=== PATIENT | male | born 1960 | race American Indian/Alaskan Native ===

== ENCOUNTER 2020-07-20 08:28 | Emergency (ER) | payer OTHER, SELFPAY ==
--- NOTE | 2020-07-20 | ECG_ITS ---
Test Reason : CHEST PAIN Blood Pressure : / mmHG Vent. Rate : 071 BPM Atrial Rate : 071 BPM P-R Int : 142 ms QRS Dur : 082 ms QT Int : 374 ms P-R-T Axes : 067 -02 063 degrees QTc Int : 406 ms Normal sinus rhythm with sinus arrhythmia Normal ECG No previous ECGs available Referred By: Generic ED Physician Electronically Signed By:NARESH SANCHEZ MD
--- NOTE | ~2020-07-20 | XR_ITS ---
EXAMINATION: XR CHEST CLINICAL INFORMATION: Chest pain COMPARISON: None TECHNIQUE: Portable upright AP x2 views of the chest was obtained. FINDINGS: The lungs are clear. There is no pneumothorax, pleural reaction, infiltrate, or groundglass opacity. No subcutaneous emphysema. The costophrenic sulci are clear. The heart is normal in size. The hilar and mediastinal contours and visualized bony structures are unremarkable. No free air beneath the diaphragms. There may be a small sliding hiatal hernia. XR/XR chest 1V IMPRESSION: Unremarkable examination.
[2020-07-20 09:19] VITALS: BP 127/72; PULSE 65; RESP 12; TEMP 36.7; O2SAT 99; BMI 28.5
--- NOTE | 2020-07-20 09:27 | ED.CHESTPAIN ---
HPI - Chest Pain General Chief Complaint: Chest Pain Stated Complaint: CHEST PAIN Time Seen by Provider: 07/20/20 09:26 Source: patient Mode of arrival: ambulatory Limitations: no limitations History of Present Illness HPI narrative: 60 yo male no sig PMH here with chest pain 3 weeks ago that went away, now states this AM at 7am he had similar chest pain that is cramping, hurts in L shoulder felt mild sob started to panic, no prior episodes of this in past worse if he moves his arm or stretches his chest MD complaint: chest pain Onset (ago): week(s) (3 weeks then this AM at 7am) Timing of current episode: episodic Prior episodes: No Onset: during rest Pain location: substernal Pain radiation: left arm Severity: moderate Quality: other (cramping) Relieving factors: nothing Exacerbating factors: movement Associated symptoms: dyspnea Treatment prior to arrival: none Related Data Allergies Allergy/AdvReac Type Severity Reaction Status Date / Time No Known Allergies Allergy Unverified 02/12/20 19:47 Review of Systems Review of Systems: Constitutional : No Weight loss, No Fever, No Chills ENT/Mouth : No sore throat, No Rhinorrhea Eyes: No Eye Pain, No Swelling Cardiovascular : pos Chest Pain, pos SOB, no Dyspnea on Exertion, No Orthopnea, No Edema, No Palpitations Respiratory : No Cough, No Sputum Gastrointestinal : no Nausea, No Vomiting, No Diarrhea, No abdominal Pain, No Hematochezia, No Melena Genitourinary : No Dysuria, No Urinary Frequency Musculoskeletal : No joint pain, No Myalgias, No Joint Swelling Skin : No Skin Lesions, No rash Neuro : No Weakness, No Numbness, No Dizziness, No Headache Psych : No Anxiety/Panic, No Depression Heme/Lymph: No Bruising, No Lymphadenopathy Endocrine : No Polyuria, No Polydipsia All other systems reviewed and are negative [facility] Past Medical History Attestation statement: The following information was validated with the patient. Medical History TBI (traumatic brain injury) Social History Social History Smoking Status: Current every day smoker Smoked in Last 30 Days: Yes Use of substances other than those prescribed or required for medical reasons: No Advance Directives: No Advance Directives Information Provided: No Physical Exam Vital Signs: Vital Signs: Last Vital Signs Temp 98.4 F 07/20/20 14:53 Pulse 80 07/20/20 14:53 Resp 18 07/20/20 14:53 BP 123/83 07/20/20 14:53 Pulse Ox 99 07/20/20 14:53 Body Mass Index 28.5 Appearance: Alert. Oriented X3. No acute distress. Eyes: Pupils equal, round and reactive to light. ENT: Pharynx normal. Neck: Normal inspection. Neck supple. CVS: Normal heart rate and rhythm. Pulses normal. Respiratory: No respiratory distress. Breath sounds normal. Abdomen: Soft and nontender. Skin: Skin warm and dry. Normal skin color. Normal skin turgor. Extremities: No lower extremity edema. No calf ttp Neuro: Oriented X 3. No motor deficit. No sensory deficit. Course Course Course Narrative: ddimer negative, troponin x 2 negative, EKG nonischemic stable for DC MDM - Chest Pain MDM Narrative Medical decision making narrative: 60 yo male with hx of ETOH abuse cut down 4 days ago c/o chest pain 3 weeks ago that he let resolve on its own, this AM at rest 7am - c/o chest pain with some shoulder pain and dyspnea worse with movements, no prior cardiac issues - will need labs, troponin x 2, ddimer, CXR, covid swab, PO aspirin and ativan 0.5mg for anxiety, dispo per results and findings. Lab Data Result diagrams: 07/20/20 09:48 07/20/20 11:57 Labs: Lab Results 07/20/20 07/20/20 07/20/20 Range/Units 09:48 09:48 09:48 WBC 8.1 (4.8-10.8) X10*3/uL RBC 5.00 (4.60-5.80) X10*6/uL Hgb 15.8 (14.0-18.0) g/dl Hct 47.0 (42-52) % MCV 94.0 (80-98) fL MCH 31.6 (27.0-33.0) pg MCHC 33.6 (31.0-36.0) g/dl RDW 12.6 (11.0-16.0) % Plt Count 306 (160-400) X10*3/uL MPV 8.5 L (9.4-12.4) fL Immature Gran % (Auto) 0.2 (0.0-0.4) % Neut % (Auto) 64.7 (45-73) % Lymph % (Auto) 25.6 (20-40) % Taliaferro % (Auto) 7.4 (2-11) % Eos % (Auto) 1.9 (0-4) % Baso % (Auto) 0.2 (0-2) % Lymph # (Auto) 2.1 (1.2-4.9) X10*3/uL [place]ferro # (Auto) 0.6 (0.1-1.2) X10*3/uL Eos # (Auto) 0.2 (0.0-0.4) X10*3/uL Baso # (Auto) 0.0 (0.0-0.2) X10*3/uL Abs Immat Gran (auto) 0.02 (0.00-0.03) X10*3/uL Absolute Neuts (auto) 5.2 (2.0-8.3) X10*3/uL Absolute Nucleated RBC 0.000 (0.0-0.012) X10*3/uL Nucleated RBC % (auto) 0.0 (0.0-0.2) /100WBC D-Dimer NG/ML Sodium (135-145) mmol/L Potassium (3.3-5.1) mmol/L Chloride (96-108) mmol/L Carbon Dioxide (22-29) mmol/L Anion Gap (12-20) BUN (9-16) mg/dL Creatinine (0.5-1.4) mg/dL Estim Creat Clear Calc Estimated GFR Random Glucose (60-115) mg/dL Calcium (8.4-10.2) mg/dL Magnesium (1.6-2.6) mg/dL Total Bilirubin (0.0-1.0) mg/dL Direct Bilirubin (0.0-0.5) mg/dL AST (5-37) U/L ALT (0-40) U/L Alkaline Phosphatase (39-117) U/L Troponin I High Sens < 3.5 (<3.5-35.0) ng/L Total Protein (6.5-8.0) g/dL Albumin (3.5-5.0) g/dL Lipase (8-78) U/L COVID-19 (AMY) Negative (Negative) COVID-19 Clin Com See Note 07/20/20 07/20/20 07/20/20 Range/Units 11:57 11:57 14:14 WBC (4.8-10.8) X10*3/uL RBC (4.60-5.80) X10*6/uL Hgb (14.0-18.0) g/dl Hct (42-52) % MCV (80-98) fL MCH (27.0-33.0) pg MCHC (31.0-36.0) g/dl RDW (11.0-16.0) % Plt Count (160-400) X10*3/uL MPV (9.4-12.4) fL Immature Gran % (Auto) (0.0-0.4) % Neut % (Auto) (45-73) % Lymph % (Auto) (20-40) % Taliaferro % (Auto) (2-11) % Eos % (Auto) (0-4) % Baso % (Auto) (0-2) % Lymph # (Auto) (1.2-4.9) X10*3/uL [place]ferro # (Auto) (0.1-1.2) X10*3/uL Eos # (Auto) (0.0-0.4) X10*3/uL Baso # (Auto) (0.0-0.2) X10*3/uL Abs Immat Gran (auto) (0.00-0.03) X10*3/uL Absolute Neuts (auto) (2.0-8.3) X10*3/uL Absolute Nucleated RBC (0.0-0.012) X10*3/uL Nucleated RBC % (auto) (0.0-0.2) /100WBC D-Dimer < 200 NG/ML Sodium 141 (135-145) mmol/L Potassium 4.4 (3.3-5.1) mmol/L Chloride 107 (96-108) mmol/L Carbon Dioxide 27 (22-29) mmol/L Anion Gap 11 L (12-20) BUN 6 L (9-16) mg/dL Creatinine 1.03 (0.5-1.4) mg/dL Estim Creat Clear Calc 76.4 Estimated GFR > 60 Random Glucose 87 (60-115) mg/dL Calcium 8.8 (8.4-10.2) mg/dL Magnesium 2.0 (1.6-2.6) mg/dL Total Bilirubin 0.5 (0.0-1.0) mg/dL Direct Bilirubin 0.2 (0.0-0.5) mg/dL AST 30 (5-37) U/L ALT 24 (0-40) U/L Alkaline Phosphatase 52 (39-117) U/L Troponin I High Sens < 3.5 (<3.5-35.0) ng/L Total Protein 6.8 (6.5-8.0) g/dL Albumin 4.1 (3.5-5.0) g/dL Lipase 22 (8-78) U/L COVID-19 (AMY) (Negative) COVID-19 [employer] Com ECG Data ECG #1: Attestation: I personally reviewed and interpreted this ECG as follows: ECG interpretation date: 07/20/20 ECG interpretation time: 09:27 Interpretation: Rate: 71 Rhythm: NSR Tell: left Normal P waves. Normal ANNA. Normal QRS complex. ST T wave : normal no BRIE qTC: normal prior studies: no acute ischemia The study has been interpreted contemporaneously by me. . Discharge Plan Discharge Clinical Impression: Chest pain Qualifiers: Chest pain type: unspecified Qualified Code(s): R07.9 - Chest pain, unspecified Patient Disposition: Home, Self-Care Instructions: Chest Pain (ED) Additional Instructions: return to ED for any worsening symptoms or concerns YOUR LIVER FUNCTION, HEART MARKERS X 2, DDIMER NEGATIVE, CXR AND COVID NEGATIVE Referrals: Lianet Torres MD [Primary Care Provider] - 2 days (CALL FOR OUTPATIENT STRESS TEST) Stand Alone Forms: Work/School Release
[2020-07-20] MEDS: Aspirin 81 MG TAB.CHEW PO (09:40)
[2020-07-20] MEDS: LORazepam 0.5 MG TABLET PO (09:40)
[2020-07-20 09:54] LABS: MANUAL DIFF FLAG NO
[2020-07-20 09:57] LABS: Basophils Percent Auto 0.2 % (0-2); Eosinophils Absolute Auto 0.2 X10*3/uL (0.0-0.4); Eosinophils Percent Auto 1.9 % (0-4); Hemoglobin 15.8 g/dl (14.0-18.0); Imm Gran Abs Auto 0.02 X10*3/uL (0.00-0.03); Imm Gran Pct Auto 0.2 % (0.0-0.4); Lymphocytes Absolute Auto 2.1 X10*3/uL (1.2-4.9); Lymphocytes Percent Auto 25.6 % (20-40); Mean Corpuscular HGB Conc 33.6 g/dl (31.0-36.0); Mean Corpuscular Hemoglobin 31.6 pg (27.0-33.0); Mean Platelet Volume 8.5 fL (9.4-12.4); Monocytes Absolute Auto 0.6 X10*3/uL (0.1-1.2); Monocytes Percent Auto 7.4 % (2-11); Neutrophils Absolute Auto 5.2 X10*3/uL (2.0-8.3); Neutrophils Percent Auto 64.7 % (45-73); Platelet Count 306 X10*3/uL (160-400); Red Cell Distribution Width 12.6 % (11.0-16.0); White Blood Count 8.1 X10*3/uL (4.8-10.8)
[2020-07-20 10:27] LABS: Troponin-I High Sensitivity < 3.5 ng/L (<3.5-35.0)
[2020-07-20 10:30] LABS: COVID-19 Test Negative (Negative)
[2020-07-20 12:21] LABS: D Dimer < 200 NG/ML
[2020-07-20 12:45] LABS: Alanine Aminotransferase 24 U/L (0-40); Albumin Level 4.1 g/dL (3.5-5.0); Alkaline Phosphatase 52 U/L (39-117); Anion Gap 11 (12-20); Aspartate Amino Transferase 30 U/L (5-37); Bilirubin Direct 0.2 mg/dL (0.0-0.5); Bilirubin Total 0.5 mg/dL (0.0-1.0); Blood Urea Nitrogen 6 mg/dL (9-16); Calcium 8.8 mg/dL (8.4-10.2); Carbon Dioxide 27 mmol/L (22-29); Chloride 107 mmol/L (96-108); Creatinine Clr Calc Pharmacy 76.4; Estimated Glomerular Filt Rate > 60; Glucose Random 87 mg/dL (60-115); Lipase 22 U/L (8-78); Potassium 4.4 mmol/L (3.3-5.1); Sodium 141 mmol/L (135-145); Total Protein 6.8 g/dL (6.5-8.0)
[2020-07-20 14:16] VITALS: BP 131/91; PULSE 78; RESP 12; O2SAT 97
[2020-07-20 14:53] VITALS: BP 123/83; PULSE 80; RESP 18; TEMP 36.9; O2SAT 99
[2020-07-20 14:53] LABS: Troponin-I High Sensitivity < 3.5 ng/L (<3.5-35.0)
== END 2020-07-20 15:14 | disposition home or self-care (01) ==
PROVIDERS: Emergency Provider Emergency Medicine; PCP Internal Medicine
DX: R07.9 Chest pain, unspecified (principal); Z20.822 Contact with and (suspected) exposure to COVID-19; Z87.820 Personal history of traumatic brain injury; F17.200 Nicotine dependence, unspecified, uncomplicated
CPT/HCPCS: 36415; 71045; 80048; 80076; 83690; 83735; 84484; 85025; 85379; 87635; 93005; 99283; 99284

== ENCOUNTER 2022-11-21 08:42 | Emergency (ER) | payer OTHER, SELFPAY ==
--- NOTE | ~2022-11-21 | CT_ITS ---
EXAMINATION: CT PELVIS WITH CONTRAST CLINICAL INFORMATION: Perianal abscess. COMPARISON: None available. TECHNIQUE: Helical scanning was performed with submillimeter collimation through the pelvis with the use of oral contrast and during bolus intravenous injection of 100 mL of Omnipaque 350 intravenous contrast. Sagittal and coronal multiplanar 2-D reconstructions were obtained. This CT examination was performed using dose optimization techniques as appropriate, variously including the following: *Automated exposure control *Adjustment of mA and/or kV according to patient size (this includes techniques or standardized protocols for targeted exams where dose is matched to indication/reason for exam; i.e. extremities or head) *Use of iterative reconstruction technique DLP: 279 mGy-cm FINDINGS: SOFT TISSUES: There is a perianal abscess collection with thickened wall and complex fluid centrally measuring approximately 3.5 x 2.1 x 2.1 cm (image 98, series 5; image 54, series 2). No significant surrounding abnormality. PELVIS: Mild prostatomegaly. Mild mural thickening in the urinary bladder without focal abnormality. No other significant intrapelvic abnormality. OSSEOUS STRUCTURES: Unremarkable. CT/CT pelvis w IV con IMPRESSION: 1. Perianal abscess as detailed above. 2. Mild prostamegaly. Mild mural thickening in the urinary bladder does not demonstrate acute features and could represent chronic changes from urinary retention.
[2022-11-21 08:51] VITALS: BP 143/87; PULSE 76; RESP 19; TEMP 36.6; O2SAT 98; BMI 27.4
--- NOTE | 2022-11-21 09:12 | ED.GENADULT ---
HPI - General Adult General Chief complaint: General Medical Stated complaint: Hernia Swollen Perineum Time Seen by Provider: 11/21/22 09:11 Source: patient Mode of arrival: ambulatory Limitations: no limitations History of Present Illness HPI narrative: 62 year old male with history of hernias requiring surgery presenting today with a complaint of swollen perineum x2-3 days. Patient states that he's never had these symptoms before. Reports recent episodes of diarrhea where he's had to strain and notes new hemorrhoid and perianal/ perineum pain/ swelling. No fever, chills, N/V, urinary symptoms. Related Data Previous Rx's Medication Instructions Recorded oxycodone-acetaminophen 5 mg-325 1 tab PO QID PRN pain #7 tabs 11/21/22 mg tablet (Percocet) Allergies Allergy/AdvReac Type Severity Reaction Status Date / Time No Known Allergies Allergy Verified 11/21/22 08:51 Review of Systems Review of Systems: Yes all other systems are reviewed and are negative [facility] Past Medical History Source: old records reviewed Medical History TBI (traumatic brain injury) Social History Social History Alcohol intake: current Alcohol intake frequency: holidays/special occasions only Alcohol type: hard liquor Smoked in Last 30 Days: Yes Use of substances other than those prescribed or required for medical reasons: Yes Substance Use Type: Marijuana Advance Directives: No Physical Exam ED Vital Signs: Vital Signs - 24 hr 11/21/22 08:51 11/21/22 09:40 11/21/22 10:06 Temperature 97.8 F 97.9 F 98.0 F Pulse Rate 76 92 80 Respiratory Rate 19 18 16 Blood Pressure 143/87 H 139/88 135/85 Pulse Oximetry 98 98 Oxygen Delivery Method Room Air Room Air 11/21/22 12:00 11/21/22 12:53 11/21/22 13:18 Temperature 98.3 F Pulse Rate 85 78 66 Respiratory Rate 16 16 16 Blood Pressure 116/83 138/81 135/83 Pulse Oximetry 99 95 Oxygen Delivery Method Room Air Room Air BMI result Body Mass Index 27.4 Const General: healthy appearing, alert and awake Nutritional Appearance: average body habitus Orientation/consciousness: oriented to person and patient oriented x3 Limitations: no limitations [facility] Head: Yes normal to inspection Ears: external ears normal General nose exam: Normal external nose present Mouth: Normal oral and palatal mucosa present and oropharynx normal Throat: Yes posterior oropharynx normal Eyes General: appearance normal, both eyes and all related structures Neck Neck: Yes normal visual inspection Chest Chest palpation & inspection: normal inspection of the chest Resp Auscultation: clear to auscultation bilaterally Cardio Jugular venous distension: no JVD Rate: regular rate Rhythm: regular rhythm Heart sounds: S1 normal heart sound present and S2 normal heart sound present GI Inspection: Yes normal to inspection Palpation (GI): Soft to palpation, nontender and No hepatosplenomegaly present Auscultation: normal bowel sounds Other: + midline perineal 2cm swelling, tenderness, firm, slight erythema General: Yes no CVA tenderness Back/Spine/Pelvis Back: no CVA tenderness Skin General skin exam: no rashes or lesions noted Neuro General: oriented to person and patient oriented x3 Cranial nerves: Yes CN's II-XII intact bilaterally Motor exam (neuro): 5/5 motor strength present throughout Extrem General: Yes normal to inspection Psych Appearance: grossly normal Course Reevaluation(s) Reevaluation #1: CT consistent with midline perianal abscess, no fever or cellulitis, wound I&D with packing placed will dc home Time: 14:45 Medications Administered Discontinued Medications Generic Name Dose Route Start Last Admin Trade Name Emilq PRN Reason Stop Dose Admin Iohexol 100 ml 11/21/22 11:12 11/21/22 11:13 Iohexol 350 Mg/Ml 100 Ml Infus..Btl IV 11/21/22 11:13 85 ml ONCE ONE Administration Morphine Sulfate 4 mg 11/21/22 09:19 11/21/22 09:36 Morphine Sulfate 4 Mg/Ml Cartridge IVPUSH 11/21/22 09:20 4 mg ONCE ONE Administration Protocol Morphine Sulfate 4 mg 11/21/22 12:03 11/21/22 12:23 Morphine Sulfate 4 Mg/Ml Cartridge IVPUSH 11/21/22 12:04 4 mg ONCE ONE Administration Protocol Ondansetron HCl 4 mg 11/21/22 09:19 11/21/22 09:36 Ondansetron Hcl 4 Mg/2 Ml Vial IVPUSH 11/21/22 09:20 4 mg ONCE ONE Administration Procedures Procedure Narrative Procedure Narrative: Patient prepped and draped in sterile fashion. !% epi with lidocaine used for anesthesia. 11 blade used, pus removed, packing placed. Patient tolerated procedure well Medical Decision Making Differential Diagnosis Differential Diagnoses: The differential diagnosis associated with the presentation includes (abscess, thrombosed hemorrhoid, hemorrhoid, perirectal fistula) Admission/Observation Consideration of admission/observation: Escalation of care including admission/observation considered (admission was considered if abscess went deep or there was a fistula and patient need surgery) Consult Healthcare Provider Management of the patient was discussed with: [employer] W[employer]y Administrator (Dr. Rodríguez general surgery) Lab Data MDM Lab Attestation statement: I reviewed the patient's lab results. (slight elevation of WBC) 11/21/22 09:30 11/21/22 09:30 Labs: Lab Results 11/21/22 11/21/22 Range/Units 09:30 09:30 WBC 12.5 H (4.8-10.8) X10*3/uL RBC 4.75 (4.60-5.80) X10*6/uL Hgb 14.8 (14.0-18.0) g/dl Hct 44.1 (42.0-52.0) % MCV 92.8 (80.0-98.0) fL MCH 31.2 (27.0-33.0) pg MCHC 33.6 (31.0-36.0) g/dl RDW 12.8 (11.0-16.0) % Plt Count 288 (160-400) X10*3/uL MPV 8.1 L (9.4-12.4) fL Immature Gran % (Auto) 0.2 (0.0-0.4) % Neut % (Auto) 71.0 (45-73) % Lymph % (Auto) 20.6 (20-40) % Dunn % (Auto) 7.4 (2-11) % Eos % (Auto) 0.7 (0-4) % Baso % (Auto) 0.1 (0-2) % Lymph # (Auto) 2.6 (1.2-4.9) X10*3/uL Dunn # (Auto) 0.9 (0.1-1.2) X10*3/uL Eos # (Auto) 0.1 (0.0-0.4) X10*3/uL Baso # (Auto) 0.0 (0.0-0.2) X10*3/uL Abs Immat Gran (auto) 0.03 (0.00-0.03) X10*3/uL Absolute Neuts (auto) 8.8 H (2.0-8.3) x10*3/uL Absolute Nucleated RBC 0.000 (0.0-0.012) X10*3/uL Nucleated RBC % (auto) 0.0 (0.0-0.2) /100WBC Sodium 140 (135-145) mmol/L Potassium 4.1 (3.3-5.1) mmol/L Chloride 105 (96-108) mmol/L Carbon Dioxide 26 (22-29) mmol/L Anion Gap 13 (12-20) BUN 9 (9-16) mg/dL Creatinine 1.02 (0.5-1.4) mg/dL Estim Creat Clear Calc 70.7 Estimated GFR > 60 Random Glucose 101 (60-115) mg/dL Calcium 9.5 D (8.4-10.2) mg/dL Independent Interpretation I performed an independent interpretation of an: CT Scan (abd: fluid collection in perineum) Radiology Impression Discussion of test interpretation with radiology: I have reviewed the radiologist's reading. Independent Historian Clinical information obtained from an independent historian. History obtained from or confirmed by: Spouse Discharge Plan Discharge Clinical Impression: Abscess, perianal Patient Disposition: Home, Self-Care Instructions: Abscess (ED) Additional Instructions: remove packing in 48 hours Prescriptions: New oxycodone-acetaminophen [Percocet] 5-325 mg tablet 1 tab PO QID PRN (Reason: pain) Qty: 7 0RF Rx Instructions: Partial Fill upon patient request. Referrals: Physician,Unknown J [Primary Care Provider] - 5 days
[2022-11-21 09:34] LABS: MANUAL DIFF FLAG NO
[2022-11-21] MEDS: Morphine Sulfate 4 MG/ML CARTRIDGE IVPUSH ×2 (09:36→12:23)
[2022-11-21] MEDS: ondansetron HCL 4 MG/2 ML VIAL IVPUSH (09:36)
--- NOTE | 2022-11-21 09:36 | PC.NURSE ---
patient a&ox3 patient c/o 03/06 pernneal pain, iv inserted, labs drawn, pt medicated per order for pain. pt awaiting radiology. vss, will continue to monitor
[2022-11-21 09:37] LABS: Basophils Percent Auto 0.1 % (0-2); Eosinophils Absolute Auto 0.1 X10*3/uL (0.0-0.4); Eosinophils Percent Auto 0.7 % (0-4); Hematocrit 44.1 % (42.0-52.0); Hemoglobin 14.8 g/dl (14.0-18.0); Imm Gran Abs Auto 0.03 X10*3/uL (0.00-0.03); Imm Gran Pct Auto 0.2 % (0.0-0.4); Lymphocytes Absolute Auto 2.6 X10*3/uL (1.2-4.9); Lymphocytes Percent Auto 20.6 % (20-40); Mean Corpuscular HGB Conc 33.6 g/dl (31.0-36.0); Mean Corpuscular Hemoglobin 31.2 pg (27.0-33.0); Mean Corpuscular Volume 92.8 fL (80.0-98.0); Mean Platelet Volume 8.1 fL (9.4-12.4); Monocytes Absolute Auto 0.9 X10*3/uL (0.1-1.2); Monocytes Percent Auto 7.4 % (2-11); Neutrophils Absolute Auto 8.8 x10*3/uL (2.0-8.3); Platelet Count 288 X10*3/uL (160-400); Red Blood Count 4.75 X10*6/uL (4.60-5.80); Red Cell Distribution Width 12.8 % (11.0-16.0); White Blood Count 12.5 X10*3/uL (4.8-10.8)
[2022-11-21 09:40] VITALS: BP 139/88; PULSE 92; RESP 18; TEMP 36.6; O2SAT 98
[2022-11-21 09:52] LABS: Anion Gap 13 (12-20); Blood Urea Nitrogen 9 mg/dL (9-16); Calcium 9.5 mg/dL (8.4-10.2); Carbon Dioxide 26 mmol/L (22-29); Chloride 105 mmol/L (96-108); Creatinine Clr Calc Pharmacy 70.7; Estimated Glomerular Filt Rate > 60; Glucose Random 101 mg/dL (60-115); Potassium 4.1 mmol/L (3.3-5.1); Sodium 140 mmol/L (135-145)
[2022-11-21 10:06] VITALS: BP 135/85; PULSE 80; RESP 16; TEMP 36.7
--- NOTE | 2022-11-21 10:21 | PC.NURSE ---
pt's pain reassessed at 10:06 stating slight decrease to a 7/10 - states that the pain worsens when he coughs or tightens his abdominal muscles - I instructed him to try to refrain from doing so, call tineo within reach, will continue to monitor.
[2022-11-21] MEDS: iohexoL 350 MG/ML 100 ML INFUS..BTL IV (11:13)
[2022-11-21 12:00] VITALS: BP 116/83; PULSE 85; RESP 16; O2SAT 99
--- NOTE | 2022-11-21 12:19 | PC.NURSE ---
pt states increase in pain at a 10/10, requesting pain medication, provider notified.
--- NOTE | 2022-11-21 12:35 | PC.NURSE ---
pt medicated with morphine per order, pt requesting hot pack as well as topical ointment or estela area- will notify provider, call tineo within reach, will continue to monitor.
[2022-11-21 12:53] VITALS: BP 138/81; PULSE 78; RESP 16
[2022-11-21 13:18] VITALS: BP 135/83; PULSE 66; RESP 16; TEMP 36.8; O2SAT 95
--- NOTE | 2022-11-21 13:19 | PC.NURSE ---
pt alert and oriented, pain level reassessed stating very minimal pain relief upon medication administration, states that it feels like he has little needles being pressed into the perineum area, vss, pt restinhg comfortably in no apparent distress, call tineo within reach, will continue to monitor.
[2022-11-21] MEDS: oxyCODONE HCl Immed Release 5 MG TABLET 10 MG PO (15:33)
[2022-11-21] MEDS: Lidocaine HCl 1%/Epi 1:100,000 10 ML VIAL SUBCUT (15:34)
== END 2022-11-21 15:48 | disposition home or self-care (01) ==
PROVIDERS: Emergency Provider Emergency Medicine
DX: K61.0 Anal abscess (principal); R10.2 Pelvic and perineal pain; Z79.899 Other long term (current) drug therapy
CPT/HCPCS: 36415; 72193; 80048; 85025; 96374; 96375; 96376; 99284; J2270; J2405; Q9967

== ENCOUNTER 2024-09-14 09:14 | Emergency (ER) | payer MEDICARE, OTHER, SELFPAY ==
[2024-09-14 09:26] VITALS: BP 133/89; BP 147/91; PULSE 100; PULSE 93; RESP 16; TEMP 36.6; O2SAT 95; O2SAT 97; BMI 23.6
[2024-09-14 09:33] VITALS: RESP 18
--- NOTE | 2024-09-14 09:35 | PC.NURSE ---
Tobias comes in from home today due to behavioral concerns per EMS. EMS reports that pts called 911 because he came home drunk and is off his bipolar medications. Pt denies having bipolar, he reports that he has a TBI. Patient is calm and cooperative, offering no complaints, denies SI/HI/AH/VH. Continue plan of care for medical clearance
--- NOTE | 2024-09-14 09:37 | ED_ITS ---
HPI - Psych General Chief Complaint: ETOH/Substance Use Stated Complaint: CRISIS EVAL,?ETOH USE,BIPOLAR OFF MED,COOP PER EMS Time Seen by Provider: 09/14/24 09:22 Source: patient, EMS, RN notes reviewed and old records reviewed Mode of arrival: EMS Limitations: no limitations History of Present Illness ED Provider: Hunter HPI Narrative: Patient is a 64-year-old male with history of TBI presenting to emergency department via EMS after called 911 for behavioral concerns. Patient admits he does not take his bipolar medications, also admits to drinking alcohol and using marijuana. He reports that any time that he and his get into an argument she calls 911. He denies making any suicidal or homicidal statements, denies suicidal or homicidal ideation, denies depression or anxiety, denies auditory or visual hallucinations. Reports he is here because he was told he needed to come for evaluation. Denies any physical complaints. Related Data Home Medications ?Medication ?Instructions ?Recorded ?Confirmed No Known Home Meds 09/14/24 09/14/24 Allergies Allergy/AdvReac Type Severity Reaction Status Date / Time No Known Allergies Allergy Verified 09/14/24 09:35 Review of Systems 2 Review of Systems: As per HPI Yes all other systems are reviewed and are negative Constitutional: Constitutional: Reports as per HPI PMFSH Past Medical History Medical History TBI (traumatic brain injury) Social History Social History Unable to assess alcohol history related to: Refusing to respond Alcohol intake: current Alcohol intake frequency: holidays/special occasions only Alcohol type: hard liquor Smoked in Last 30 Days: Yes Use of substances other than those prescribed or required for medical reasons: No Substance Use Type: Marijuana Advance Directives: No Advance Directives Information Provided: Yes Physical Exam 2 Vital Signs: Vital Signs: Last Vital Signs Temp 98 F 09/14/24 09:26 Pulse 93 09/14/24 09:26 Resp 18 09/14/24 09:33 BP 133/89 09/14/24 09:26 Pulse Ox 95 09/14/24 09:26 O2 Del Method Room Air 09/14/24 09:26 BMI result Body Mass Index 23.6 Vital signs have been reviewed and appear to be correct. Blood pressure normal. Heart rate normal. Respiratory rate normal. Temperature normal. Oxygen saturation normal. Const: General: cooperative, healthy appearing and no acute distress O rientation/consciousness: oriented to person, oriented to place, oriented to time and patient oriented x3 Limitations: no limitations HEENT: Head: Yes normocephalic and Yes atraumatic Ears: external ears normal General nose exam: Normal external nose present Face and sinus: Yes face symmetric Mouth: oropharynx normal and moist mucous membranes Throat: Yes uvula midline Eyes: Pupils: Equal, round and reactive pupils present Neck: Neck: Yes normal visual inspection and Yes supple Resp: Effort & Inspection: normal respiratory effort and able to speak in complete sentences Auscultation: clear to auscultation bilaterally Cardio: Rate: regular rate Rhythm: regular rhythm Heart sounds: S1 normal heart sound present and S2 normal heart sound present GI: Palpation (GI): Soft to palpation and nontender Auscultation: n ormoactive bowel sounds : General: Yes no CVA tenderness Back/Spine/Pelvis: Back: no CVA tenderness Skin: General skin exam: elasticity normal and turgor normal Neuro: General: oriented to person, oriented to place, oriented to time, patient oriented x3, moves all extremities, no focal motor deficits and CN's II- XI intact bilaterally Cranial nerves: Yes Equal, round and reactive pupils present Cognition (Neuro): normal cognition Extrem: General: Yes full ROM, Yes no pedal edema and Yes no calf tenderness Psych: Appearance: grossly normal Mental Status: mental status grossly normal Speech and movement: Normal speech and movement present Affect: n ormal affect Attitude: cooperative Thought process: Normal thought process present Thought content: suicidality, no homicidality, no hallucinations and No Depressive thoughts present Insight: Fair insight present (Psych) J udgement: Fair judgement present (Psych) Medical Decision Making Medical Decision Making MDM Narrative: Patient is a 64-year-old male with history of TBI presenting to emergency department via EMS after called 911 for behavioral concerns. On exam patient is awake, A+Ox3, VS WNL, afebrile, normal neurological exam without focal deficits, physical exam findings as above. Given reported symptoms and physical exam findings, initial differential includes but is not limited to drug or alcohol intoxication or withdrawal, depression, anxiety. Labs unremarkable. Ethanol 168. Per CARE team, patient's is here, willing to bring patient home. Patient currently asleep, CARE team will reach back out to once patient is awake. Patient now awake, agreeable to discharge home with . Patient not interested in detox at this time. Comfortable with discharge home. Return precautions discussed. Patient verbalized understanding of and agreement plan. Differential Diagnosis Differential Diagnoses: The differential diagnosis associated with the presentation includes As per [facility] Admission/Observation Consideration of admission/observation: Escalation of care including admission/observation considered Patient would have been admitted to the hospital had their work up had any findings where hospital admission was appropriate and their clinical presentation warranted hospital admission. Consult Healthcare Provider Management of the patient was discussed with: Behavioral Health Provider Lab Data [facility] Lab Attestation statement: I reviewed the patient's lab results. As per [facility] 09/14/24 10:02 09/14/24 10:02 Labs: Lab Results 09/14/24 Range/Units 10:02 WBC 8.3 (4.8-10.8) X10*3/uL RBC 4.21 L (4.60-5.80) X10*6/uL Hgb 13.4 L (14.0-18.0) g/dl Hct 38.3 L (42.0-52.0) % MCV 91.0 (80.0-98.0) fL MCH 31.8 (27.0-33.0) pg MCHC 35.0 (31.0-36.0) g/dl RDW 12.8 (11.0-16.0) % Plt Count 281 (160-400) X10*3/uL MPV 8.0 L (9.4-12.4) fL Immature Gran % (Auto) 0.2 (0.0-0.4) % Neut % (Auto) 66.5 (45-73) % Lymph % (Auto) 25.7 (20-40) % Ross % (Auto) 7.0 (2-11) % Eos % (Auto) 0.5 (0-4) % Baso % (Auto) 0.1 (0-2) % Lymph # (Auto) 2.1 (1.2-4.9) X10*3/uL Ross # (Auto) 0.6 (0.1-1.2) X10*3/uL Eos # (Auto) 0.0 (0.0-0.4) X10*3/uL Baso # (Auto) 0.0 (0.0-0.2) X10*3/uL Abs Immat Gran (auto) 0.02 (0.00-0.03) X10*3/uL Absolute Neuts (auto) 5.5 (2.0-8.3) x10*3/uL Absolute Nucleated RBC 0.000 (0.0-0.012) X10*3/uL Nucleated RBC % (auto) 0.0 (0.0-0.2) /100WBC Sodium 140 (135-145) mmol/L Potassium 3.8 (3.3-5.1) mmol/L Chloride 106 (96-108) mmol/L Carbon Dioxide 25 (22-29) mmol/L Anion Gap 13 (12-20) BUN 6 L (9-16) mg/dL Creatinine 0.88 (0.5-1.4) mg/dL Estim Creat Clear Calc 82.5 Estimated GFR > 60 Random Glucose 95 (60-115) mg/dL Calcium 8.8 D (8.4-10.2) mg/dL Total Bilirubin 0.3 (0.0-1.0) mg/dL AST 37 (5-37) U/L ALT 17 (0-40) U/L Alkaline Phosphatase 47 (39-117) U/L Total Protein 7.1 (6.5-8.0) g/dL Albumin 4.2 (3.5-5.0) g/dL Salicylates < 5.0 L (15-30) mg/dL Acetaminophen < 3 (<30) mcg/mL Ethyl Alcohol 168 mg/dL External Record Review External record reviewed: Inpatient record, Office record and Outpatient record Discharge Plan Discharge Clinical Impression: Alcoholic intoxication Patient Disposition: Home, Self-Care Instructions: Alcohol Intoxication (ED) Additional Instructions: Alcohol use disorder You were seen in the Emergency Department today for alcohol intoxication.? If you would like to cut down or stop your alcohol use please consider calling our outpatient Addiction Treatment office:? [facility] [place] (M-F [id number]) [address] [place] [address] ? You have also been given a list of treatment providers in the area that can assist as well.? If you experience seizures, vomiting blood, black stools, falls, severe headache, chest pain, fevers, trouble breathing, hallucinations or any other concerns you need to call 911 or seek immediate care. Please stay hydrated. Prescriptions: No Action No Known Home Meds Print Language: Bahamian
--- NOTE | 2024-09-14 09:53 | PC.NURSE ---
Pt reports he takes no medications and has no medical problems
[2024-09-14 10:07] LABS: MANUAL DIFF FLAG NO
[2024-09-14 10:08] LABS: Basophils Percent Auto 0.1 % (0-2); Eosinophils Percent Auto 0.5 % (0-4); Hematocrit 38.3 % (42.0-52.0); Hemoglobin 13.4 g/dl (14.0-18.0); Imm Gran Abs Auto 0.02 X10*3/uL (0.00-0.03); Imm Gran Pct Auto 0.2 % (0.0-0.4); Lymphocytes Absolute Auto 2.1 X10*3/uL (1.2-4.9); Lymphocytes Percent Auto 25.7 % (20-40); Mean Corpuscular Hemoglobin 31.8 pg (27.0-33.0); Monocytes Absolute Auto 0.6 X10*3/uL (0.1-1.2); Neutrophils Absolute Auto 5.5 x10*3/uL (2.0-8.3); Neutrophils Percent Auto 66.5 % (45-73); Platelet Count 281 X10*3/uL (160-400); Red Blood Count 4.21 X10*6/uL (4.60-5.80); Red Cell Distribution Width 12.8 % (11.0-16.0); White Blood Count 8.3 X10*3/uL (4.8-10.8)
[2024-09-14 10:22] LABS: Acetaminophen LAB < 3 mcg/mL (<30); Salicylate < 5.0 mg/dL (15-30)
[2024-09-14 10:23] LABS: Alanine Aminotransferase 17 U/L (0-40); Albumin Level 4.2 g/dL (3.5-5.0); Alkaline Phosphatase 47 U/L (39-117); Anion Gap 13 (12-20); Aspartate Amino Transferase 37 U/L (5-37); Bilirubin Total 0.3 mg/dL (0.0-1.0); Blood Urea Nitrogen 6 mg/dL (9-16); Calcium 8.8 mg/dL (8.4-10.2); Carbon Dioxide 25 mmol/L (22-29); Chloride 106 mmol/L (96-108); Creatinine Clr Calc Pharmacy 82.5; Estimated Glomerular Filt Rate > 60; Ethanol 168 mg/dL; Glucose Random 95 mg/dL (60-115); Potassium 3.8 mmol/L (3.3-5.1); Sodium 140 mmol/L (135-145); Total Protein 7.1 g/dL (6.5-8.0)
--- OUTSIDE RECORDS SUMMARY | 2024-09-14 10:44 | XMS_ITS ---
Author Name [facility] [place] Address [address] [place] [address] Care Team Providers Care Digital Sales Assistant Name Role Phone LAI GOTTLIEB Primary Care Provide r Unavailable Insurance Providers: All historical and current Section Date Range: From patient's date of to the date document was created. This section includes the names of all active insurance providers for the patient. Insurance Provider Type of Coverage Plan Name Start of Policy Coverage End of Policy Coverage Group Number Member ID Insurance Provider's Telephone Number Policy Peter's Name Patient's Relationship to Policy Peter [facility] (MEDICAID) MEDICAID PREMI UM NILE TANCE May 28, 2013 [id number] [phone] AQUILINO OLIVER PATIENT MEDICAID MEDICAID [facility] May 28, 2014 MEDICAI D [id number] AQUILINO OLIVER PATIENT MEDICAID MEDICAID [facility] May 28, 2014 MEDICAI D [id number] [phone] AQUILINO MANRIQUE PATIENT Selected Encounter This section includes the information on record at [place] for the Encounter. Date/Time Encounter Type Encounter Description Reason Provider Source Jan 10, 2024 11:48 AM QNHP OL DIG ASSMT&MGMT 5-10 PULMONARY/CHEST ICD-10-CM Z12.2 Encntr screen for malignant neoplasm of respiratory organs MERARYTRISTIN CCA L IHE Encounter Template Text not used by [place] Assessments - Encounter Diagnoses This section includes the primary and secondary diagnoses documented for the Encounter. Date/Time Primary/Secondary Diagnosis Diagnosis Name Provider Source Jan 10, 2024 11:58 AM PRIMARY Encntr screen for malignant neoplasm of respiratory organs JANATRISTIN BLUM CCA L [facility] Plan of Treatment: Future Appointments (+ 6 months) and Future Tests (+/- 45 days) The Plan of Treatment section includes future care activities for the patient from all [place] treatmentfacilities. This section includes future appointments and future orders which are active, pending or scheduled. Future Appointments This section includes appointments that were scheduled to occur 6 months from the date of the Encounter, up to a maximum of 20 appointments. The data comes from all [place] treatment facilities. Appointment Date/Time Appointment Type Appointme nt Facility Name Feb 21, 2024 10:00 AM [facility]ATORY - [facility] Social History: Smoking Status (Most current) and Tobacco Use (All prior to encounter date) This section includes the most current, and the historical, smoking and tobacco- related health factors from the [place] facility where the Encounter took place. Current Smoking Status This section includes the most current smoking, or tobacco-related health factor, from the [place] facility where the Encounter took place. Date/Time Current Smoking Status Comment [facility] October 03, 2022 02:21 PM VA-TOBACCO USER EVERY DAY [facility] Tobacco Use History This section includes a history of the smoking, or tobacco-related health factors, that were collected on or before the date of the Encounter. The data comes from the [place] facility where the Encounter took place. Date/Time Smoking Status/Tobac co Use Comment Facility October 03, 2022 02:21 PM VA-TOBACCO USE ADVICE [facility] [place] [facility] October 03, 2022 02:21 PM VA-TOBACCO USE SENIOR GRADUATE ADVISOR YES [facility] [place] [facility] October 03, 2022 02:21 PM VA-TOBACCO USE MED NO [facility] [place] [facility] October 03, 2022 02:21 PM VA-TOBACCO USE WI 30 MIN OF WAKEUP [facility] [place] [facility] October 03, 2022 02:21 PM VA-TOBACCO USER EVERY DAY [facility] [place] [facility] Apr 12, 2021 02:04 PM ORYX ADMIT TOBACCO SCREEN YES [facility] [place] [facility] Apr 12, 2021 02:04 PM ORYX ADMIT TOBACCO USE CIGS GR 5D [facility] [place] [facility] Apr 12, 2021 02:04 PM ORYX DAILY TOBACCO SENIOR GRADUATE ADVISOR RECEIVED [facility] [place] [facility] Apr 12, 2021 02:04 PM ORYX DAILY TOBACCO MEDS REFUSED [facility] [place] [facility] Apr 12, 2021 10:30 AM VA-TOBACCO USE 30 YEARS OR MORE [facility] [place] [facility] Apr 12, 2021 10:30 AM VA-TOBACCO USE ADVICE [facility] [place] [facility] Apr 12, 2021 10:30 AM VA-TOBACCO USE SENIOR GRADUATE ADVISOR NO [facility] [place] [facility] Apr 12, 2021 10:30 AM VA-TOBACCO USE MED NOTIFY PROVIDER replacement gum [facility] [place] [facility] Apr 12, 2021 10:30 AM VA-TOBACCO USE WI 30 MIN OF WAKEUP [facility] [place] [facility] Apr 12, 2021 10:30 AM VA-TOBACCO USER EVERY DAY [facility] [place] [facility] October 19, 2019 08:35 PM ORYX ADMIT TOBACCO SCREEN YES [facility] [place] [facility] October 19, 2019 08:35 PM ORYX ADMIT TOBACCO USE CIGS GR 5D [facility] [place] [facility] October 19, 2019 08:35 PM ORYX DAILY TOBACCO SENIOR GRADUATE ADVISOR RECEIVED [facility] [place] [facility] October 19, 2019 08:35 PM ORYX DAILY TOBACCO MEDS ORDERED [facility] Radiology Reports: +/- 30 days of the encounter Radiology Reports For cases when an order for radiology services may have been completed prior to the date of the Encounter, the report list includes the Radiology Reports that were completed up to 30 days before dateof the Encounter. For cases when an order for radiology services may have been completed after the date of the Encounter, the report list also includes the Radiology Reports that were completed up to30 days after date of the Encounter. The data comes from all [place] treatment facilities. Date/Time Radiology Report Provider Source Jan 10, 2024 08:51 AM LDCT LUNG CANCER SCREENING: AQUILINO OLIVER [facility] [id number] -[id number] M Exm Date: JAN 10, 2024@08:51 Req Phys: LAI GOTTLIEB Pat Loc: CWM/SO/PACT 5 (Req'g Loc) Img Loc: NHM/CT Service: [place] [address] (Case [id number] COMPLETE) LDCT LUNG CANCER SCREENING (CT Detailed) CPT:71359 Reason for Study: lung nodule Clinical History: Report Status: Verified Date Reported: JAN 10, 2024 Date Verified: JAN 10, 2024 Finished Cigar Maker E-Sig:/ES/KIMMIE HESTER JR Report: Study: Lung cancer screening CT of the chest. Provided History: Lung cancer screening. Comparison: CT scan of the chest from December 28, 2022, October 13, 2020, May 12, 2019 and May 18, 2017. Technique: 1 mm lung algorithm and 3 mm soft tissue algorithm axial reconstructions from the lung apices through the lung bases without the administration of intravenous contrast as per standard department protocol for lung cancer screening. Subsequently, sagittal and coronal reformats were generated. MIP images also provided and reviewed. Secondary computer-aided detection with post-processing from [employer] is used. The lack of intravenous contrast inherently limits the evaluation of hilar structures, vascular structures, and abnormal enhancement patterns. Lower than standard dose was utilized limiting sensitivity for fine parenchymal detail. Dose Parameters: CTDI(vol): 2.0 mGy. DLP: 74.1 mGy*cm. Findings: Lungs: Emphysema: Mild paraseptal emphysematous changes are stable in the right pulmonary apex. Index Nodule: None. Other Nodules: None. Lungs/airway findings: No acute pulmonary process or pleural effusion is identified. There are mild dependent changes present at the lung bases. The tracheobronchial tree is patent and normal. Heart, mediastinum and lymph nodes: The heart size is normal. No pericardial effusion identified. Normal caliber thoracic aorta. No mediastinal or hilar lymphadenopathy by size criteria. No axillary lymphadenopathy by size criteria. Normal caliber pulmonary arteries. Visualized coronary artery and aortic calcifications: Atherosclerotic changes of the aorta and coronary arteries. Upper abdomen: Left adrenal calcifications. Bones and soft tissues: Normal age-related degenerative changes present. Several old healed left lateral rib fractures. No acute bony abnormality identified. Other findings: None. Impression: No significant interval change or new abnormality, as described above. Lung-RADS Assessment: Category 1, Negative. Recommendation: Continue annual screening with lung cancer screening CT in 12 months. Other Significant Findings and Recommendations: None. Primary Diagnostic Code: No immediate attention required Secondary Diagnostic Codes: LUNGRADS 1: NEGATIVE Primary Interpreting Staff: KIMMIE HESTER JR, Radiologist (Finished Cigar Maker) /KIMMIE ALVAREZ JR [facility] [place] [facility] Encounter Notes: All associated encounter notes This section contains the clinical notes associated to the Encounter. Date/Time Encounter Note(s) Provider Source Jan 10, 2024 11:58 AM PREVENTIVE MEDICINE RISK ASSESSMENT SCREENING NOTE: LOCAL TITLE: LUNG CANCER SCREENING DOCUMENTATION STANDARD TITLE: PREVENTIVE MEDICINE RISK ASSESSMENT SCREENING NO DATE OF NOTE: JAN 10, 2024@11:58 ENTRY DATE: JAN 10, 2024@11:58:53 AUTHOR: TEJINDER REAGAN COSIGNER: URGENCY: STATUS: COMPLETED Dec Dear Mr. Oliver: Your recent lung cancer screening CT scan showed NO abnormal findings that are concerning for lung cancer. This result is reassuring news. If there are additional findings, we will alert your primary care team. A copy if the results from your Low-Dose CT scan done on 01/10/2024 are enclosed with this letter. Your next lung cancer screening CT scan is due in 12 months, DECEMBER 2024. You may reach our radiology team M-F between the hours of 8am and 4pm at [phone] for scheduling purposes. If you are experiencing an upper respiratory illness like a cold or the flu, please get your scan 4 weeks after your symptoms have gone away. Lung cancer screening can detect lung cancer, but it does not prevent it. Rarely, a CT scan can miss a small lung cancer. Contact your primary care provider if you develop new symptoms like worsening shortness of breath, change in a cough, or coughing up blood. If you still smoke cigarettes, we can help you quit. We understand that quitting cigarette smoking is difficult, but it is the best way to improve your health. When you want help, let your primary care provider know. You can also call 1-715-XJNV-VET ( ) or visit [place].smokefree.gov. Please contact us with questions or concerns about lung cancer screening. Sincerely, Tejinder LANDON, RN, OCN Lung Cancer Screening Nurse Enclosures: brochure entitled, My Lung Cancer Screening Did Not Show Lung Cancer /es/ TEJINDER LANDON,RN,OCN LUNG CANCER SCREENING NURSE NAVIGATOR Signed: 01/10/2024 12:00 TEJINDER REAGAN [facility] Jan 10, 2024 11:48 AM PREVENTIVE MEDICINE RISK ASSESSMENT SCREENING NOTE: LOCAL TITLE: LUNG CANCER SCREENING DOCUMENTATION STANDARD TITLE: PREVENTIVE MEDICINE RISK ASSESSMENT SCREENING NO DATE OF NOTE: JAN 10, 2024@11:48 ENTRY DATE: JAN 10, 2024@11:48:37 AUTHOR: TEJINDER REAGAN EXP COSIGNER: URGENCY: STATUS: COMPLETED NO LUNG NODULES or TRACKING OF NODULE NOT INDICATED per guidelines (e.g., clearly benign/some small nodules). Date of image: Date: January 10, 2024 LDCT Scan Results: Most recent LDCT Scan negative for lung nodules Comment: Lung Rads 1 Index Nodule: None. Other Nodules: None. INCIDENTAL FINDINGS WILL BE MANAGED DEEMED CLINICALLY APPROPRIATE BY PCP The following incidental findings were noted: 1.) Emphysema: Mild paraseptal emphysematous changes are stable in the right pulmonary apex. 2.) Visualized coronary artery and aortic calcifications: Atherosclerotic changes of the aorta and coronary arteries. 3.) Upper abdomen: Left adrenal calcifications. 4.) Bones and soft tissues: Several old healed left lateral rib fractures. I am notifying the Primary Care Provider for information, and for follow-up of incidental findings, if indicated. Comment: Dr. Gottlieb and PACT team via second signer in CPRS Plan: Continue routine annual lung cancer screening. Patient Notification of results: Results letter sent to patient. Comment: Results letter and educational materials mailed to address on file. Patient contacted by telephone. Comment: Call placed to the . Non-urgent voicemail left. Direct call back number for LCS Coordinator provided. /es/ TEJINDER LANDON,RN,OCN LUNG CANCER SCREENING NURSE NAVIGATOR Signed: 01/10/2024 11:58 Receipt Acknowledged By: 01/16/2024 17:14 /es/ LAI GOTTLIEB MD PHYSICIAN 01/13/2024 16:05 /es/ DIPESH HUTSON,RN-BC REGISTERED NURSE (RN) for TEJINDER VICTORIA [facility]
--- OUTSIDE RECORDS SUMMARY | 2024-09-14 10:44 | XMS_ITS | Continuity of Care Document ---
Author Name [facility] Organization [facility] Care Team Providers Care Substitute Nurse Name Role Phone [facility] Unavailable Unavailable Problems Combined list of problems from Department of Defense and Veterans Affairs facilities. It does not include entries that were removed or entered in error. Problem Status Onset Date Problem Type Date of Resolution Comments Source History of repair of umbilical hernia Active 09/13/19 16 Condition Jul 23, 2016 Entered By: SHAILESH ROBERTO Comment: lap bilat inguinal hernia and umbilical hernia repair [facility] Upper Gastrointestinal Diagnostic Endoscopy Active 08/23/19 12 Condition September 27, 2011 Entered By: SHAILESH ROBERTO Comment: sm hiatal hernia, reflux erosive esophagitis, Rx PPI [facility] Cellulitis of hand Active 01/27/20 11 Condition Jun 09, 2011 Entered By: SHAILESH ROBERTO Comment: left has FB and cellulitis, hosp x 5 days in [place] [facility] 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 Bilateral inguinal hernia [facility] Chronic low back pain Active Condition [facility] Chronic obstructive lung disease Active Condition October 21, 2019 Entered By: REE PANDYA Z Comment: neg CT chest screen 05/12/19. 40 pack year smoker [facility] Erectile Dysfunction (SCT [id number]) Active Condition [facility] Esophagitis, unspecified Active Condition September 27, 2011 Entered By: SHAILESH ROBERTO Comment: erosive [facility] Housing adequate Active Condition [facility] Nicotine dependence (SNOMED CT 57074490) Active Condition [facility] Other Specified Housing or Economic Circumstances Active Condition [facility] Paranoid schizophrenia (SNOMED CT 64074356) Active Condition May 08, 2018 Entered By: LASHA [facility]ALLO [facility] Entered By: LASHA DIALLO Comment: reviewed [facility] Screening for Malignant Neoplasms of colon Active Condition September 27, 2011 Entered By: SHAILESH ROBERTO Comment: 08/23/11 normal repeat 10 yrs [facility] Tonsillectomy and Adenoidectomy (Under Age 12) Active Condition [facility] [facility] Umbilical hernia Active Condition [place] [facility] Diagnosis: ICD-10-CM Z12.2 Encntr screen for malignant neoplasm of respiratory organs Active Diagnosis [facility] Diagnosis: ICD-10-CM F20.0 Paranoid schizophrenia Active Diagnosis [facility] Diagnosis: ICD-10-CM Z65.3 Problems related to other legal circumstances Active Diagnosis [facility] Medications Combined list of outpatient medications from Department of Defense and Veterans Affairs facilities.Medications provided include 1) outpatient medications from the last 15 months, and 2) patient-reported medications. Medication Details Route Status Patient Instructions Prescription Expires Prescription Number Last Dispense Date Ordering Provider Order Date Order Qty Source QUETIAPINE FUMARATE 50MG TAB TAKE ONE TABLET BY MOUTH AT BEDTIME FOR MOOD/ THOUGHTS ORAL 04/24/2024 [id number] KRYSTIAN DIALLO 2022 60 [place] Immunizations Combined list of available immunizations from the Department of Defense and Veterans Affairs facilities. Immunization Series Date Given Administered By Site Reaction Lot Number CVX Code Drug Assistant Child Care Teacher Status Comments Source ZOSTER RECOMBINANT 2022 ARLETH JALLOH RIGHT DELTO ID [id number] 187 complet ed [facility] TDAP 2021 115 complet ed [facility] IELD ZOSTER RECOMBINANT 1 2021 187 complet ed [facility] COVID-19 (MODERNA), MRNA, LNP-S, PF, 100 MCG/0.5 ML DOSE 2 2020 207 complet ed MOD; [id number]; 1 [place] COVID-19 (MODERNA), MRNA, LNP-S, PF, 100 MCG/0.5 ML DOSE 1 2020 207 complet ed MOD; [id number]; 1 [place] INFLUENZA, INJECTABLE, QUADRIVALENT 2017 158 complet ed Site: Left Deltoid [place] INFLUENZA, SEASONAL, INJECTABLE 2016 141 complet ed Site: Right Deltoid [place] FLU,3 YRS (HISTORICAL) 2016 88 complet ed [place] FLU,3 YRS (HISTORICAL) 2015 88 complet ed Site: Left Deltoid [place] FLU,3 YRS (HISTORICAL) 2013 88 complet ed Site: Left Deltoid [place] FLU,3 YRS (HISTORICAL) 2012 88 complet ed [facility] FLU,3 YRS (HISTORICAL) 2011 88 complet ed Site: Left Deltoid [place] PNEUMOCOCCAL, UNSPECIFIED FORMULATION 2011 109 complet ed Site: Left Deltoid [place] TD(ADULT) UNSPECIFIED FORMULATION 2010 139 complet ed [place] [facility] DTAP, UNSPECIFIED FORMULATION 2007 107 complet ed [facility] Results Combined list of recent chemistry, hematology and other laboratory results from Department of Defense and Veterans Affairs, ranging from 15 months to all on record, depending upon the facility. Order Name Results Value Reference Range Date Interpretation Specimen Comments Source VITAMIN B-1 (THIAMINE )-(QU) THIAMINE [MOLES/VOLU ME] IN SERUM OR PLASMA 6 nmol/L 8 - 30 10/17 L Specimen Type: PLASMA Comment: Vitamin supplementa tion within 24 hours prior to blood draw may affect the accuracy of the results. This test was developed and its analytical performance characteris tics have been determined by [employer], [place]. It has not been cleared or approved by the U.S. Food and Drug Administrat ion. This assay has been validated pursuant to the CLIA regulations and is used for clinical purposes. Test Performed by [facility], [place] [facility], [address] [facility] [address], [place], [place] Charbel Avila M.D., Ph.D., Director of Laboratorie s , CLIA [id number] TEST PERFORMED AT: , Ordering Provider: JAMIE LIN Report Released Date/Time: October 06, 2022 11:54 AM Reporting Lab: [facility] [address] [address] Performing Lab: [facility] [address] [address] [place] FOLATE FOLATE [MASS/VOLUM E] IN SERUM OR PLASMA 9.01 ng/mL 10/17 Specimen Type: SERUM No comment entered. Ordering Provider: JAMIE LIN Report Released Date/Time: October 06, 2022 11:54 AM Reporting Lab: [facility] [address] [address] Performing Lab: [facility] [address] [address] [place] TSH THYROTROPIN [UNITS/VOLU ME] IN SERUM OR PLASMA 1.00 u[IU]/ mL 0.35 - 5.00 10/17 Specimen Type: SERUM No comment entered. Ordering Provider: JAMIE LIN Report Released Date/Time: October 06, 2022 11:54 AM Reporting Lab: [address] [address] Performing Lab: [facility] [address] [address] [place] HEMOGLOBI N A1C PANEL HEMOGLOBIN A1C/HEMOGLO BIN.TOTAL IN BLOOD BY HPLC 5.2 4.0 - 5.6 10/17 Specimen Type: BLOOD Comment: Values obtained from A1C measurement s can vary. For atypical A1C assays, a reported value of 7.0 could actually be between 6.72 and 7.28 if measured by a reference method. A reported value of 9.0 could actually be between 8.73 and 9.27. Ref: http://www. ngsp.org/[place] Pdata.asp Ordering Provider: JAMIE LIN Report Released Date/Time: October 06, 2022 11:54 AM Reporting Lab: [facility] [address] [address] Performing Lab: [facility] [address] [address] [place] PSA PROSTATE SPECIFIC AG [MASS/VOLUM E] IN SERUM OR PLASMA 2.57 ng/mL 0.00 - 4.00 10/17 Specimen Type: SERUM No comment entered. Ordering Provider: JAMIE LIN Report Released Date/Time: October 06, 2022 11:54 AM Reporting Lab: [facility] [address] [address] Performing Lab: [facility] [address] [address] [place] VITAMIN B12 COBALAMIN (VITAMIN B12) [MASS/VOLUM E] IN SERUM OR PLASMA 982 pg/mL 200 - 900 10/17 H Specimen Type: SERUM No comment entered. Ordering Provider: JAMIE LIN Report Released Date/Time: October 06, 2022 11:54 AM Reporting Lab: [facility] [address] [address] Performing Lab: [facility] [address] [address] [place] MAGNESIUM MAGNESIUM [MASS/VOLUM E] IN SERUM OR PLASMA 2.0 mg/dL 1.6 - 2.6 10/17 Specimen Type: SERUM No comment entered. Ordering Provider: JAMIE LIN Report Released Date/Time: October 06, 2022 11:54 AM Reporting Lab: [facility] [address] [address] Performing Lab: [facility] [address] [address] [place] VITAMIN D (25-OH) 25-HYDROXYV ITAMIN D3 [MASS/VOLUM E] IN SERUM OR PLASMA 20 ng/mL 20 - 50 10/17 Specimen Type: SERUM No comment entered. Ordering Provider: JAMIE LIN Report Released Date/Time: October 06, 2022 11:54 AM Reporting Lab: [facility] [address] [address] Performing Lab: [address] [address] [place] LIPID PANEL FASTING CHOLESTEROL [MASS/VOLUM E] IN SERUM OR PLASMA 190 mg/dL 10/17 Specimen Type: SERUM No comment entered. Ordering Provider: JAMIE LIN Report Released Date/Time: October 06, 2022 11:54 AM Reporting Lab: [address] [address] Performing Lab: [address] [address] [place] LIPID PANEL FASTING TRIGLYCERID E [MASS/VOLUM E] IN SERUM OR PLASMA 91 mg/dL 0 - 150 10/17 Specimen Type: SERUM No comment entered. Ordering Provider: JAMIE LIN Report Released Date/Time: October 06, 2022 11:54 AM Reporting Lab: [address] [address] Performing Lab: [address] [address] [place] LIPID PANEL FASTING CHOLESTEROL IN LDL [MASS/VOLUM E] IN SERUM OR PLASMA BY CALCULATION 111 mg/dL 0 - 129 10/17 Specimen Type: SERUM No comment entered. Ordering Provider: JAMIE LIN Report Released Date/Time: October 06, 2022 11:54 AM Reporting Lab: [address] [address] Performing Lab: [address] [address] [place] LIPID PANEL FASTING CHOLESTEROL .TOTAL/CHOL ESTEROL IN HDL [MASS RATIO] IN SERUM OR PLASMA 3.1 10/17 Specimen Type: SERUM No comment entered. Ordering Provider: JAMIE LIN Report Released Date/Time: October 06, 2022 11:54 AM Reporting Lab: [facility] [address] [address] Performing Lab: [facility] [address] [address] [place] LIPID PANEL FASTING CHOLESTEROL IN HDL [MASS/VOLUM E] IN SERUM OR PLASMA 61 mg/dL 40 - 60 10/17 H Specimen Type: SERUM No comment entered. Ordering Provider: JAMIE LIN Report Released Date/Time: October 06, 2022 11:54 AM Reporting Lab: [facility] [address] [address] Performing Lab: [facility] [address] [address] [place] LIVER FUNCTION PROTEIN [MASS/VOLUM E] IN SERUM OR PLASMA 7.5 g/dL 6.0 - 8.3 10/17 Specimen Type: SERUM No comment entered. Ordering Provider: JAMIE LIN Report Released Date/Time: October 06, 2022 11:54 AM Reporting Lab: [facility] [address] [address] Performing Lab: [facility] [address] [place] LIVER FUNCTION ALBUMIN [MASS/VOLUM E] IN SERUM OR PLASMA 4.1 g/dL 3.5 - 5.0 10/17 Specimen Type: SERUM No comment entered. Ordering Provider: JAMIE LIN Report Released Date/Time: October 06, 2022 11:54 AM Reporting Lab: [facility] [address] Performing Lab: [facility] [address] [place] LIVER FUNCTION ALKALINE PHOSPHATASE [ENZYMATIC ACTIVITY/VO LUME] IN SERUM OR PLASMA 59 U/L 40 - 150 10/17 Specimen Type: SERUM No comment entered. Ordering Provider: JAMIE LIN Report Released Date/Time: October 06, 2022 11:54 AM Reporting Lab: [facility] [address] [address] Performing Lab: [facility] [address] [address] [place] LIVER FUNCTION ASPARTATE AMINOTRANSF ERASE [ENZYMATIC ACTIVITY/VO LUME] IN SERUM OR PLASMA 32 U/L 5 - 34 10/17 Specimen Type: SERUM No comment entered. Ordering Provider: JAMIE LIN Report Released Date/Time: October 06, 2022 11:54 AM Reporting Lab: [facility] [address] [address] Performing Lab: [facility] [place] [address] [address] [place] LIVER FUNCTION ALANINE AMINOTRANSF ERASE [ENZYMATIC ACTIVITY/VO LUME] IN SERUM OR PLASMA 18 U/L 10/17 Specimen Type: SERUM No comment entered. Ordering Provider: JAMIE LIN Report Released Date/Time: October 06, 2022 11:54 AM Reporting Lab: [facility] [address] [address] Performing Lab: [facility] [address] [address] [place] LIVER FUNCTION BILIRUBIN.T OTAL [MASS/VOLUM E] IN SERUM OR PLASMA 0.8 mg/dL 0.2 - 1.2 10/17 Specimen Type: SERUM No comment entered. Ordering Provider: JAMIE LIN Report Released Date/Time: October 06, 2022 11:54 AM Reporting Lab: [facility] [place] [address] [address] Performing Lab: [facility] [facility] [address] [address] [facility] Encounters Combined list of: 1) Encounters from Department of Veterans Affairs facilities going backup to the last 18 months, not all VA inpatient encounters are included; 2) Encounters from the Department of Defense facilities going backup to 280 months. Location Location Details Encounter Type Encounter Number Reason For Visit Attending Provider ADM Date DC Date Status Disposition Source [place] [facility] [facility] PROGRAM INTAKE ASSESSMENT [id number] Diagnos is: ICD-10- CM Z65.3 Problem s related to other legal circums tances KENROY,MAEVE NA E 03/19 [facility] [place] [facility] OFFICE O/P EST MOD 30-39 MIN [id number] Diagnos is: ICD-10- CM F20.0 Paranoi d schizop hrenia DEEPALI DIALLO 03/28 [facility] [place] [place] [facility] CASE MANAGEMENT [id number] Diagnos is: ICD-10- CM Z65.3 Problem s related to other legal circums tances KENROY,MAEVE NA E 03/29 [facility] [place] [facility] [place] [facility] Outpatient Encounter [id number] 03/29 [facility] [place] [facility] [place] [facility] HC PRO PHONE CALL 21-30 MIN [id number] Diagnos is: ICD-10- CM F20.0 Paranoi d schizop hrenia Caitlyn YAN 03/30 [facility] [place] [facility] [place] [facility] Outpatient Encounter [id number] 04/13 [facility] [place] [facility] [place] [facility] Outpatient Encounter [id number] 11/20 /2023 [facility] [place] [facility] OFFICE O/P EST MOD 30-39 MIN [id number] Diagnos is: ICD-10- CM F20.0 Paranoi d schizop hrivette DIALLO,DEEPALI AN 04/24 [place] [facility] En[facility] [id number] 04/26 [facility] En[facility] [id number] 05/10 [facility] En[facility] [id number] 05/16 [facility] En[facility] [id number] 05/23 [facility] En[facility] [id number] 05/31 [facility] QNHP OL DIG ASSMT&MGMT 21+ [id number] Diagnos is: ICD-10- CM Z12.2 Encntr screen for maligna nt neoplas m of respira tory organs CONNELLEY, MARY D 12/27 [facility] En[facility] [id number] 01/09 [facility] QNHP OL DIG ASSMT&MGMT 5-10 [id number] Diagnos is: ICD-10- CM Z12.2 Encntr screen for maligna nt neoplas m of respira tory organs PUCHALSKI, TEJINDER L 01/09 [place] [facility] [place] [place] [facility] [place] [facility] Outpatient Encounter [id number] 02/20 [place] [facility] [place] [place] [facility] [place] [facility] Outpatient Encounter [id number] 03/20 [place] [facility] [place] [facility] Social History Combined list of available smoking, tobacco, and other social history from Department of Defense and Veterans Affairs facilities. Social History Type Response Date Comment Source Tobacco smoking status NHIS VA-TOBACCO USER EVERY DAY 10/03/2022 [place] [facility] [place] [facility] History of tobacco use VA-TOBACCO USE WI 30 MIN OF WAKEUP 10/03/2022 [facility] [place] [place] [facility] History of tobacco use ORYX ADMIT TOBACCO SCREEN YES 04/12/2021 [facility] [place] [facility] History of tobacco use VA-TOBACCO USER EVERY DAY 04/12/2021 [place] [facility] [place] [facility] History of tobacco use VA-TOBACCO USER EVERY DAY 09/16/2020 [place] History of tobacco use ORYX ADMIT TOBACCO USE CIGS GR 5D 10/19/2019 [facility] [place] [facility] History of tobacco use VA-TOBACCO USE MED NO 12/19/2018 [place] History of tobacco use CURRENT SMOKER 10/23/2017 1 ppd [place] History of tobacco use CURRENT SMOKER 04/24/2017 1/2 ppd [place] History of tobacco use CURRENT SMOKER 07/18/2016 [place] History of tobacco use CURRENT SMOKER 06/28/2015 1/2 ppd [place] History of tobacco use V1-PT THINKING ABOUT QUIT TOBACCO USE 12/24/2014 [place] History of tobacco use V1-PT NOT INTERESTED IN QUIT TOBACCO USE 07/23/2014 [place] History of tobacco use CURRENT SMOKER 02/16/2014 Pt reports 1/2 pack daily [place] History of tobacco use V1-PT THINKING ABOUT QUIT TOBACCO USE 08/14/2013 [place] History of tobacco use CURRENT SMOKER 12/03/2012 pt reports smoking 1/2 a day [place] History of tobacco use V1-PT READY TO QUIT TOBACCO USE 02/08/2012 [place] History of tobacco use CURRENT SMOKER 06/09/201105/29 [facility]
--- NOTE | 2024-09-14 14:31 | MHC.CARE ---
Patient was evaluated by the CARE Team, he does not require an inpatient psychiatric hospitalization. ED provider Noemy Harrison NP updated and in agreement to discharge patient.
[2024-09-14 15:00] VITALS: BP 142/84; PULSE 74; RESP 16; TEMP 36.9; O2SAT 99
== END 2024-09-14 15:15 | disposition home or self-care (01) ==
PROVIDERS: Registered Nurse Emergency; Emergency Provider Emergency Medicine Emergency Medical Services
DX: F10.129 Alcohol abuse with intoxication, unspecified (principal); F31.9 Bipolar disorder, unspecified; Z91.148 Patient's other noncompliance with medication regimen for other reason; Z87.820 Personal history of traumatic brain injury
CPT/HCPCS: 36415; 80053; 80143; 80179; 80307; 85025; 99284; S9485

== ENCOUNTER 2025-01-18 00:10 | Emergency (ER) | payer MEDICARE, MEDICAID, SELFPAY ==
--- OUTSIDE RECORDS SUMMARY | 2025-01-17 19:26 | XMS_ITS | Continuity of Care Document ---
Author Name [facility] Organization [facility] Care Team Providers Care Payroll Processor Name Role Phone [facility] Unavailable Unavailable Problems Combined list of problems [...] bilat inguinal hernia and umbilical hernia repair [facility] Upper Gastrointestinal Diagnostic Endoscopy Active 08/23/19 12 Condition September 27, 2011 Entered By: SHAILESH ROBERTO Comment: sm hiatal hernia, reflux erosive esophagitis, Rx PPI [facility] Cellulitis of hand Active 01/27/20 11 Condition Jun 09, 2011 Entered By: SHAILESH ROBERTO Comment: left has FB and cellulitis, hosp x 5 days in [place] [facility] 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 Active 05/28/18 90 Condition October 21, 2019 Entered By: REE PANDYA Z Comment: states began with topical exposure to 'methyl-ethyl ketone/PD680' cleaning, and worse with hand sanitizing ( appears as eczema [facility] Alcohol abuse Active Condition [facility] Bilateral inguinal [facility] Chronic low back pain Active Condition [facility] Chronic obstructive lung disease Active Condition October 21, 2019 Entered By: REE PANDYA Z Comment: neg CT chest screen 05/12/19. 40 pack year smoker [facility] Erectile Dysfunction (SCT [id number]) Active Condition [facility] Esophagitis, unspecified Active Condition September 27, 2011 Entered By: SHAILESH ROBERTO Comment: erosive [facility] Housing adequate Active Condition [facility] [place] [facility] Nicotine dependence (SNOMED CT [id number]) Active Condition [facility] Other Specified Housing or Economic Circumstances Active Condition [facility] Paranoid schizophrenia (SNOMED CT 06152803) Active Condition May 08, 2018 Entered By: [facility]ASHA [facility] Entered By: LASHA DIALLO Comment: reviewed [facility] Screening for Malignant Neoplasms of colon Active Condition September 27, 2011 Entered By: SHAILESH ROBERTO Comment: 08/23/11 normal repeat 10 yrs [facility] Tonsillectomy and Adenoidectomy (Under Age 12) Active Condition [facility] Umbilical hernia Active Condition [facility] [place] [facility] Diagnosis: ICD-10-CM Z12.2 Encntr screen for malignant neoplasm of respiratory organs Active Diagnosis [facility] Medications Combined list of outpatient medications [...] AT BEDTIME FOR MOOD/ THOUGHTS ORAL 04/24/2024 [id number] KRYSTIAN DIALLO 2022 60 [facility] IELD Immunizations Combined list of available immunizations from the Department of Defense and Veterans Affairs facilities. Immunization Series Date Given Administered By Site Reaction Lot Number CVX Code Drug All Round Logger Status Comments Source ZOSTER RECOMBINANT 2022 ARLETH JALLOH RIGHT DELTO ID [id number] 187 complet ed [facility] TDAP 2021 115 complet ed [place] ZOSTER RECOMBINANT 1 2021 187 complet ed [place] COVID-19 (MODERNA), MRNA, LNP-S, PF, 100 MCG/0.5 ML DOSE 2 2020 207 complet ed [place]; [id number]; [place] COVID-19 (MODERNA), MRNA, LNP-S, PF, 100 MCG/0.5 ML DOSE 1 2020 207 complet ed MOD; [id number]; 1 [facility] IELD INFLUENZA, INJECTABLE, QUADRIVALENT 2017 158 complet [...] ed [facility] Encounters Combined list of: 1) Encounters from Department of Veterans Affairs facilities going backup to the last 18 months, not all VA inpatient encounters are included; 2) Encounters from the Department of Defense facilities going backup to 280 months. Location Location Details Encounter Type Encounter Number Reason For Visit Attending Provider ADM Date DC Date Status Disposition Source [facility] QNHP OL DIG ASSMT&MGMT 21+ [id number] Diagnos is: ICD-10- CM Z12.2 Encntr screen for maligna nt neoplas m of respira tory organs CONNMARY BAZZI D 12/27 [facility] Outpatient Encounter [id number] 01/09 [facility] QNHP OL DIG ASSMT&MGMT 5-10 [id number] Diagnos is: ICD-10- CM Z12.2 Encntr screen for maligna nt neoplas m of respira tory organs PUCHALSKI, TEJINDER L 01/09 [facility] [place] [facility] Outpatient Encounter [id number] 02/20 [facility] Outpatient Encounter [id number] 03/20 [facility] Outpatient Encounter [id number] 10/24 [facility] [place] [facility] Social History Combined list of available smoking, tobacco, and other social history from Department of Defense and Veterans Affairs facilities. Social History Type Response Date Comment Source Tobacco smoking status [facility] VA-TOBACCO USER EVERY DAY 10/03/2022 [facility] [place] [facility] History of tobacco use SC-TOBACCO USE [place] 30 MIN OF WAKEUP 10/03/2022 [facility] [place] [facility] History of tobacco use ORYX ADMIT TOBACCO USE CIGS GR 5D 04/12/2021 [facility] [place] [facility] History of tobacco use SC-TOBACCO USE WI 30 MIN OF WAKEUP 04/12/2021 [facility] [place] [facility] History of tobacco use VA-TOBACCO USER EVERY DAY 09/16/2020 [facility] History of tobacco use ORYX ADMIT TOBACCO USE CIGS GR 5D 10/19/2019 [facility] [place] [facility] History of tobacco use 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 12/19/2018 [facility] History of tobacco use CURRENT SMOKER 10/23/2017 1 ppd [facility] History of tobacco use CURRENT SMOKER 04/24/2017 1/2 ppd [facility] History of tobacco use CURRENT SMOKER 07/18/2016 [facility] History of tobacco use CURRENT SMOKER 06/28/2015 1/2 ppd [facility] History of tobacco use V1-PT THINKING ABOUT QUIT TOBACCO USE 12/24/2014 [facility] History of tobacco use V1-PT NOT INTERESTED IN QUIT TOBACCO USE 07/23/2014 [facility] History of tobacco use CURRENT SMOKER 02/16/2014 Pt reports 1/2 pack daily [facility] History of tobacco use V1-PT THINKING ABOUT QUIT TOBACCO USE 08/14/2013 [facility] History of tobacco use CURRENT SMOKER 12/03/2012 pt reports smoking 1/2 a day [facility] History of tobacco use V1-PT READY TO QUIT TOBACCO USE 02/08/2012 [facility] History of tobacco use CURRENT SMOKER 06/09/2011 1/2 ppd [facility] Plan of Care List of future care activities from Department of [facility] Affairs facilities. Additional future care activities may be listed in the Assessment and Plan section. Date/Time Care Activity Care Activity Detail Facili ty 01/28/2025 AMBULATORY - NONE AMBULATORY - NONE [facility]
[2025-01-18 00:13] VITALS: BP 140/83; PULSE 108; RESP 20; TEMP 36.6; O2SAT 98; BMI 26.8
[2025-01-18 00:33] LABS: MANUAL DIFF FLAG NO
[2025-01-18 00:37] LABS: Hematocrit 40.8 % (42.0-52.0); Hemoglobin 14.5 g/dl (14.0-18.0); Imm Gran Abs Auto 0.01 X10*3/uL (0.00-0.03); Imm Gran Pct Auto 0.1 % (0.0-0.4); Lymphocytes Absolute Auto 2.5 X10*3/uL (1.2-4.9); Mean Corpuscular HGB Conc 35.5 g/dl (31.0-36.0); Mean Corpuscular Hemoglobin 32.2 pg (27.0-33.0); Mean Corpuscular Volume 90.5 fL (80.0-98.0); NRBC Abs Auto 0.000 X10*3/uL (0.0-0.012); NRBC Pct Auto 0.0 /100WBC (0.0-0.2); Platelet Count 321 X10*3/uL (160-400); Red Blood Count 4.51 X10*6/uL (4.60-5.80); White Blood Count 9.8 X10*3/uL (4.8-10.8)
--- NOTE | 2025-01-18 00:58 | PC.NURSE ---
Addendum entered by Marquita Alfaro RN 01/18/25 01:01: provider made aware patient left. Original Note: patient informed RN he has to go home for 1 hour and 20 minutes because he has meat in his smoker and he wants to make sure a bear didn't get to it. patient aware he has not been evaluated yet and will had to re sign back in if he returns. patient verbally understood.
[2025-01-18 01:04] LABS: Alanine Aminotransferase 20 U/L (0-40); Albumin Level 4.7 g/dL (3.5-5.0); Alkaline Phosphatase 58 U/L (39-117); Anion Gap 18 (12-20); Aspartate Amino Transferase 35 U/L (5-37); Blood Urea Nitrogen 8 mg/dL (9-16); Calcium 9.0 mg/dL (8.4-10.2); Carbon Dioxide 24 mmol/L (22-29); Chloride 105 mmol/L (96-108); Creatinine Clr Calc Pharmacy 64.4; Estimated Glomerular Filt Rate > 60; Potassium 3.7 mmol/L (3.3-5.1); Sodium 143 mmol/L (135-145); Total Protein 7.8 g/dL (6.5-8.0)
== END 2025-01-18 01:01 | disposition left against medical advice (07) ==
PROVIDERS: Emergency Provider Emergency Medicine
DX: L02.91 Cutaneous abscess, unspecified (principal); Z53.21 Procedure and treatment not carried out due to patient leaving prior to being seen by health care provider
CPT/HCPCS: 36415; 80053; 85025; 99281